=== PATIENT | male | born 1995 | race Caucasian/White ===

== ENCOUNTER 2021-03-27 09:07 | Emergency (ER) | payer OTHER ==
--- NOTE | 2021-03-27 10:12 | ED Physician Documentation ---
History of Present Illness - Stated complaint Stated Complaint: BACK PAIN - Chief complaint Chief Complaint: Trauma Ch/Bk - History obtained from History obtained from: Patient - Additonal information Additional information: The patient comes to the emergency department with chief complaint of thoracic back pain after a snowboarding accident 2 days ago. Patient shows a video of his accident in which he went off a jump and twisted in the air, landing on his back from a height of approximately 60 feet. He struck his head in the process and states he may have lost consciousness for "a few seconds". He states he immediately had some degree of pain in his back, between his scapulae, but otherwise, was able to get up and do a few more runs and finish the day. Patient states that he was able to drive home, though he did feel a little bit dazed. He denies any headache, visual changes, incoordination, dizziness, or nausea since the accident. He denies any numbness or tingling in his extremit ies. No weakness. No loss of bowel or bladder control. He states mainly, he has pain between his shoulder blades, both in his spine and in the musculature. He states it is worse when he twists or bends over. No other complaints at this time. 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 Review of Systems Ten Systems: 10 systems reviewed and negative Constitutional: reports: Reviewed and negative Eyes: reports: Reviewed and negative Ears: reports: Reviewed and negative Nose: reports: Reviewed and negative Throat: reports: Reviewed and negative Cardiac: reports: Reviewed and negative Respiratory: reports: Reviewed and negative GI: reports: Reviewed and negative : reports: Reviewed and negative Skin: reports: Reviewed and negative Musculoskeletal: reports: Back pain, Reviewed and negative Neurologic: reports: Reviewed and negative Psychiatric: reports: Reviewed and negative Endocrine: reports: Reviewed and negative Immunocompromised: reports: Reviewed and negative PD PAST MEDICAL HISTORY - Past Medical History Past Medical History: No Cardiovascular: None Respiratory: None Neuro: None Endocrine/Autoimmune: None GI: None : None HEENT: None Psych: None Musculoskeletal: None Derm: None - Past Surgical History Past Surgical History: Yes Ortho: Other - Allergies Allergies/Adverse Reactions: Allergies Allergy/AdvReac Type Severity Reaction Status Date / Time No Known Drug Allergies Allergy Verified 03/27/21 09:21 - Social History Does the pt smoke?: No Smoking Status: Never smoker Does the pt drink ETOH?: No Does the pt have substance abuse?: No - Immunizations Immunizations are current?: Yes PD ED PE NORMAL - Vitals Vital signs reviewed: Yes - General General: Alert and oriented X 3, No acute distress, Well developed/nourished - HEENT HEENT: Atraumatic, PERRL, EOMI, Moist mucous membranes - Neck Neck: Supple, no meningeal sign, No bony TTP - Cardiac Cardiac: RRR, No murmur - Respiratory Respiratory: No respiratory distress, Clear bilaterally - Abdomen Abdomen: Soft, Non tender, Non distended - Back Back: Other (Tenderness palpation over the T8-10 area and of the associated paraspinal musculature, especially on the left. No point tenderness of either scapula.) - Derm Derm: Normal color, Warm and dry, No rash - Extremities Extremities: No deformity, Normal ROM s pain, No edema, No calf tenderness / cord - Neuro Neuro: Alert and oriented X 3, revolving inventory clerk 2-12 intact, No motor deficit, No sensory deficit, Normal speech - Psych Psych: Normal mood, Normal affect Results - Vitals Vitals: Vital Signs - 24 hr 03/27/21 03/27/21 09:14 10:52 Temperature 36.6 C 36.6 C Heart Rate 70 54 L Respiratory 16 14 Rate Blood Pressure 130/64 122/78 O2 Saturation 97 100 Oxygen O2 Source Room air - Rads (name of study) Thoracic spine x-ray series Radiology: Final report received, EMP read indepedently, See rad report (Negative) PD MEDICAL DECISION MAKING - ED course Complexity details: reviewed results, re-evaluated patient, considered differential, d/w patient ED course: The patient was well-appearing overall and his main complaint was pain in his thoracic spine area. I did not feel that at this point, 48 hours later, that the head injury was a major concern, given the patient had had essentially no symptoms since. I did feel he should have imaging of his thoracic spine, though, and as such, a T-spine x-ray series was ordered. The patient was also given a dose of ibuprofen. T-spine x-ray series was unremarkable. We discussed symptomatic management at home and the usual indications for return. Departure - Departure Disposition: Home, Self Care Clinical Impression: Thoracic sprain Thoracic myofascial strain Qualifiers: Encounter type: initial encounter Qualified Code(s): S29.019A - Strain of muscle and tendon of unspecified wall of thorax, initial encounter Condition: Stable Instructions: ED Sprain Thoracic Spine Comments: Your x-ray looks good. You have most likely sprained the ligaments of your thoracic spine and bruised and strained the musculature in the same region. This will ultimately get better on its own, but will take some days to weeks. You may take ibuprofen and/or Tylenol to help with the discomfort. You may also use ice, heat, and massage, as well as stretches, to help with some of the muscle spasm and discomfort. Discharge Date/Time: 03/27/21 10:54
[2021-03-27] MEDS: IBUPROFEN 800 MG TABLET PO STA (10:16)
--- NOTE | 2021-03-27 10:34 | XRAY Report ---
PROCEDURE: Thoracic Spine 3 View INDICATIONS: snowboarding accident 2 d/a, pain TECHNIQUE: 3 views of the thoracic spine were acquired. COMPARISON: None. FINDINGS: Normal thoracic vertebral body height and alignment. There is no evidence of thoracic spine fracture. Visualized portions of the ribs are intact. IMPRESSION: Normal exam. Reviewed by: Richard Rodriguez MD on 03/27/2021 10:32 AM [facility] Approved by: Richard Rodriguez MD on 03/27/2021 10:32 AM [facility] Station ID: [id number]
[2021-03-27 10:53] VITALS: BP 122/78
== END 2021-03-27 10:54 | disposition home or self-care (01) ==
LOC: ED 09:07
DX: S23.3XXA Sprain of ligaments of thoracic spine, initial encounter (principal); S29.019A Strain of muscle and tendon of unspecified wall of thorax, initial encounter; S09.90XA Unspecified injury of head, initial encounter; V00.311A Fall from snowboard, initial encounter; Y93.23 Activity, snow (alpine) (downhill) skiing, snowboarding, sledding, tobogganing and snow tubing
CPT/HCPCS: 72072; 99282; 99283; A9270

== ENCOUNTER 2021-05-05 08:43 | Outpatient (CLI) | payer OTHER ==
[2021-05-05 09:35] VITALS: BP 126/73
--- NOTE | 2021-05-05 09:35 | SLEEP CARE CONSULTATION ---
Information from patient questionnaire entered by Jomar Emery MA. I have reviewed and concur with the information entered by Jomar Emery MA. This document represents the service I personally performed and the decisions made by , Daisy Almendarez ARNP. History of Present Illness Service Date and Time: 05/05/2021 0843 Reason for Visit: New patient Chief Complaint: reports: Unrefreshed sleep, Snoring, Excessive daytime sleepiness, Observed pauses in breathing, Fatigue, Frequent awakenings at night Date of Onset: 2 PLUS YEARS Usual bedtime: 9 PM Time it takes to fall asleep: 20-40 MINUTES Snores at night: Yes Observed to quit breathing while asleep: Yes Sleeps alone due to snoring: Yes Number of times waking at night: 3-5 Reasons for waking at night: reports: Snoring, Other (hungry; unknown reasons). denies: Choking, Gasping for air Toss, Turn, or Twitch while sleeping: Yes Recalls having dreams: Yes (sometimes) Usually gets out of bed at: 0500 Feels refreshed in the morning: No Morning headache: Yes (3-4 times a week, last about an hour, not always with meds) Sleepy or fatigued during the day: Yes (exhausted driving to work) Ever fallen asleep while driving: No Takes day naps: Yes (daily at work, about 20-30 minutes; sometimes multiple naps at work) Dreams during day naps: Yes (sometimes) Prior sleep studies: No Additional HPI information: I had the pleasure of seeing WELLINGTON DYKES today regarding the possibility of him having a sleep disorder. His current complaints are excessive daytime sleepiness, fatigue, frequent night awakenings, observed pauses in breathing, snoring and unrefreshed sleep. Over Thanksgiving holiday leave, he was told that he stopped breathing when sleeping. He has snored for a long time and is tired throughout the day. He has days he has a hard time staying awake at work. He states he will wake up many times through the night but be able to go back to sleep within 10-15 minutes. He sometimes wakes up hungry and will eat something before going back to sleep. Other times he is unsure of why he is waking up, may be due to snoring sometimes. He takes a nap every day and sometimes more than one because he gets so sleepy when he is at work. He denies drowsy driving or falling asleep at the wheel while driving. He has cut down his caffeine use and stopped alcohol use 6 months ago. He is trying to exercise at least 5 days a week. These changes have not improved his daytime tiredness or morning restfulness. 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 Patient is Single and lives in [place]. Have you smoked in the past 12 months: No Cigarettes per day (20/pack): 10 Years of smokin Quit date: 2019 Smoking Pack Years: 2.5 Alcohol use: No Alcohol amount and frequency: stopped drinking 6 months ago Caffeine use: Yes Caffeine amount and frequency: 1 cup X DAILY Family History Family history of sleep disordered breathing: Yes Family Hx Sleep Apnea: Father: Snoring, Grandparent: Snoring Allergies and Home Medications Known drug allergies: No Drug allergies reviewed: Yes (NKDA) Home medication list reviewed: Yes Allergy and home medication list: Allergies No Known Drug Allergies Allergy (Verified 03/27/21 09:21) Medications: LEXAPRO 20MG OD Multivitamins Review of Systems Cardiovascular: denies: high blood pressure Gastrointestinal: denies: heartburn Neurological: reports: head trauma (2 concussions). denies: headaches Psychiatric: reports: anxiety, depression Ear/Nose/Throat: denies: injury to nose, tonsillectomy, wisdom teeth removed Endocrine: denies: thyroid disease (some issues run in his family) Musculoskeletal: reports: back pain Immunologic: reports: allergies to food or environment (cats and dust) Physical Exam Vital signs obtained and entered by: Renu EMERY CMA [facility] Blood Pressure: 126/73 (RIGHT, PULSE 76, RESP 16) Heart Rate: 71 O2 Saturation: 97 (PAPER MASK) Height: 5 ft 10 in Weight: 165 lb (PT CLOTHES) Body Mass Index: 23.6 BMI Classification: Healthy weight Neck circumference: 16 (INCHES) Mouth and throat: narrow oropharynx Soft palate: long Hard palate: normal Uvula: normal Uvula visualization: 50% Mallampati Class II Tongue: enlarged in size with teeth todd on lateral edges Tonsils: 1+ Neck: normal w/o lymphadenopathy or thyromegaly Heart: regular rate and rhythm Lungs: clear bilaterally Impression and Plan 1. Suspected Obstructive Sleep Apnea-Hypopnea Syndrome, as suggested by a history of loud and irregular snoring, observed cessation of breath while asleep, morning headache, frequent awakening during the night, unrefreshed sleep, cognitive impairment, and excessive daytime sleepiness. Narrow oropharynx and obesity are common predisposing factors for obstructive sleep apnea-hypopnea syndrome. I recommend proceeding to polysomnography to confirm the diagnosis and to assess severity. If the patient has significant sleep disordered breathing, a manual CPAP titration study will also be performed to find the optimal treatment pressure. I informed the patient of what the sleep studies involve and after some discussion, obtained agreement to proceed. The pathophysiology of obstructive sleep apnea-hypopnea syndrome was discussed with the patient and health risks of cardiovascular and cerebrovascular disease if not treated. AASM brochure for obstructive sleep apnea-hypopnea syndrome given and reviewed. Risks of drowsy driving discussed in detail and patient advised to avoid long distance driving and to tail puller at the first sign of drowsiness. Patient agreed to plan. * Schedule polysomnography * Avoid long distance driving or driving when feeling sleepy. * Avoid alcohol, sedative and muscle relaxant around bedtime. * Attempt to lose weight. * Review instructions provided by trained office staff on how to prepare for the sleep study. * Return for follow-up after sleep study completed. Counseling Topics: Weight control Visit Type: In Office Time Spent with Patient (minutes): 30 Provider Statement: I spent 100% of the Face to Face Visit with the patient with greater than 50% spent counseling the patient and coordination of care.
== END 2021-05-05 08:44 | disposition home or self-care (01) ==
LOC: SC 08:43
PROVIDERS: ATTEND Nurse Practitioner Family
DX: R06.83 Snoring (principal); R06.81 Apnea, not elsewhere classified; R51.9 Headache, unspecified; G47.8 Other sleep disorders; R41.89 Other symptoms and signs involving cognitive functions and awareness; G47.10 Hypersomnia, unspecified
CPT/HCPCS: 99203; 99212

== ENCOUNTER 2021-05-17 08:54 | Outpatient (CLI) | payer OTHER | END 2021-05-17 08:55 | disposition home or self-care (01) | LOC: SC 08:54 | PROVIDERS: ATTEND Nurse Practitioner Family | DX: G47.33 Obstructive sleep apnea (adult) (pediatric) (principal) | CPT/HCPCS: 95806 ==

== ENCOUNTER 2021-05-24 13:12 | Outpatient (CLI) | payer OTHER ==
--- NOTE | 2021-05-24 13:19 | SLEEP CARE CONSULTATION ---
Information from patient questionnaire entered by Jomar Gimenez MA. I have reviewed and concur with the information entered by Jomar Gimenez MA. This document represents the service I personally performed and the decisions made by , Daisy Almendarez ARNP. History of Present Illness Service Date and Time: 05/24/2021 1300 Initial [place] Sleepiness Scale score: 18 (2021) Current [place] Sleepiness Scale score: 18 Additional HPI information: WELLINGTON DYKES returns via telehealth visit for follow up and results of the recently performed home sleep study. I explained the pathophysiology behind obstructive sleep apnea. We then spent quite a bit of time discussing different treatment options. For mild obstructive sleep apnea, surgery and oral appliance are alternatives to nasal CPAP therapy but in moderate or severe cases, nasal CPAP is the most effective and reliable treatment. Because apnea is primarily in supine position, then positional management therapy could be effective. Methods discussed such as positioning with pillows to prevent supine sleep. I reviewed the impact of weight changes on sleep apnea and strongly recommended losing weight. After some discussion, the patient opted to go with the nasal CPAP therapy. Nasal autoCPAP set at 4-15 cmH20 will be ordered with rationale explained. A manual titration study will be ordered if unable to find optimal pressure with office adjustments. I explained how CPAP machine works and what to expect when using the machine. Using CPAP every night in order to get used to it was emphasized. Patient advised to put CPAP mask on before getting into bed so as not to fall asleep without CPAP. To assist acclimation to CPAP use, it could also be used for a short time during day while reading or watching TV. The patient was instructed to call the CPAP supplier to discuss any mechanical problem that may occur. If the mask given is uncomfortable or is difficult to keep on through the night even with adjustment, contact the CPAP supplier as many will replace with another mask style if notified before 30 days. If snoring or perceives is not getting enough air or too much air from the machine, notify this office. Patient does not drink alcohol. Patient was cautioned about risks of drowsy driving until sleepiness symptoms resolve. Patient denies drowsy driving. Sleep Study - Results Type of Sleep Study: Home sleep study (F/U HOME STUDY, 05/17/21 [facility],) Prior sleep studies: No Polysomnography/Home Sleep Study results: Physician Impression: The quality of the study is good. The length of the study is adequate (> 240 minutes). Please also see the tabulated and graphic data. 1. Obstructive Sleep Apnea-Hypopnea (ICD-10 G47.33), mild, with an AHI of 7.9/hr and luiz SaO2 of 92%. During the study, the patient had 64 apneas (64 obstructive, 0 central, 0 mixed) and 5 hypopneas. The longest episode lasted 82.5 seconds. The patient did not sleep supine during this study. Allergies and Home Medications Home medication list reviewed: Yes (no changes) Allergy and home medication list: Allergies No Known Drug Allergies Allergy (Verified 03/27/21 09:21) Review of Systems Review of systems same as previous: Yes (no changes) Physical Exam Vital signs obtained and entered by: Telehealth visit Height: 5 ft 10 in Weight: 167 lb (per patient) Body Mass Index: 23.9 BMI Classification: Healthy weight Impression and Plan 1. Obstructive Sleep Apnea-Hypopnea Syndrome, mild, with lowest oxygen saturation of 92%. Obviously this is the cause of the patients symptoms of unrefreshed sleep, and excessive daytime sleepiness. Positive pressure therapy could benefit anxiety and depression. As mentioned above, the patient will be started on nasal autoCPAP therapy with pressure set at 4-15 cmH2O. Compliance guidelines also reviewed. A copy of compliance guidelines will be given for reference at check out. * Nasal auto CPAP therapy, pressure at 4-15 cm H2O. * Attempt to lose weight. * Avoid alcohol consumption near bedtime. * Avoid supine sleep until using CPAP. * The patient is again cautioned about driving until sleepiness completely resolves. * Return one month after CPAP obtained. I will assess response to therapy and compliance at that time. Counseling Topics: Weight control Visit Type: Telehealth Video Video Type: [employer] Patient Location: work Location of Provider: Office Patient agrees and consents to this telehealth visit type: Yes Patient agrees to have their insurance billed: Yes Time Spent with Patient (minutes): 20 Provider Statement: I spent 100% of the Telehealth Video Call with the patient with greater than 50% spent counseling the patient and coordination of care.
== END 2021-05-24 13:13 | disposition home or self-care (01) ==
LOC: SC 13:12
PROVIDERS: ATTEND Nurse Practitioner Family
DX: G47.33 Obstructive sleep apnea (adult) (pediatric) (principal)